=== PATIENT | female | born 1985 | race African-American/Black ===

== ENCOUNTER 2023-03-23 11:57 | Day surgery (SDC) | payer OTHER, SELFPAY ==
[2023-03-20 11:45] VITALS: BMI 29.7
[2023-03-23] MEDS: LACTATED RINGERS 1,000 ML 42 ML IV (12:52)
[2023-03-23 13:05] VITALS: BP 116/78; PULSE 87; RESP 16; TEMP 36.6; O2SAT 100; BMI 29.7
--- NOTE | 2023-03-23 13:42 | P.HP_ITS ---
History of Present Illness History of Present Illness Date Patient Seen: 03/23/23 Time Patient Seen: 13:42 Chief complaint: Tonsillectomy/Adenoidectomy Narrative: 38-year-old female last seen in clinic 12/20/2022 for chronic tonsillitis and tonsil stones as well as recurrent acute tonsillitis, presents for tonsillectomy and possible adenoidectomy. No interval health changes, wishes to proceed. [facility] Medical History Respiratory obstruction Recurrent acute tonsillitis Tonsil stone Headache Sleep disorder Depression Anxiety Surgical History No history of previous surgery Social History household members: spouse Smoking Status: Never smoker alcohol intake: current Meds Home Medications and Allergies Home Medications Medication Instructions Recorded Confirmed Type naproxen 500 mg tablet (Naprosyn) 500 mg PO PRN PRN prn 03/20/23 03/23/23 History sertraline 25 mg PO DAILY 03/20/23 03/23/23 History terbinafine HCl 250 mg tablet 250 mg PO DAILY 03/20/23 03/23/23 History trazodone 200 mg PO DAILY 03/20/23 03/23/23 History bupropion HCl 300 mg 24 hr tablet, 300 mg PO DAILY 03/23/23 03/23/23 History extended release Allergies Allergy/AdvReac Type Severity Reaction Status Date / Time No Known Drug Allergies Allergy Verified 03/23/23 12:52 Review of Systems Review of Systems Narrative: Negative except as listed in the HPI Exam Vital Signs (past 8 hours): - 03/23/23 13:05 Temperature 97.9 F Pulse Rate 87 Respiratory Rate 16 Blood Pressure 116/78 Pulse Oximetry 100 Oxygen Delivery Method Room Air Oxygen Delivery Method Room Air Narrative Exam Narrative: Well-developed well-nourished, heart regular rate and rhythm without murmur, lungs clear to auscultation bilaterally Assessment & Plan Assessment & Plan narrative: Assessment: Chronic tonsillitis, tonsil stones, recurrent acute tonsillitis, throat pain, upper airway obstruction Plan: Following discussion of the material risks benefits complications and alternatives, the patient elected to proceed.
--- NOTE | 2023-03-23 13:42 | PM.PREOP ---
Pre-operative Note Interval Note History & Physical reviewed/Exam performed by Physician: Yes Changes to H&P: No
--- NOTE | 2023-03-23 13:44 | PM.OP.1 ---
Operative Date/Time/Diagnoses Date of procedure: 03/23/23 Time of procedure: 14:19 Pre-op diagnosis: Chronic tonsillitis with tonsil stones, throat pain, recurrent acute tonsillitis, upper airway obstruction Post-op diagnosis: same Procedure & Clinicians Procedure: Tonsillectomy Same procedure as scheduled: Yes Indications: 38 Year old with the above diagnoses incompletely managed with medical therapy presents for the above procedure. Following discussion of the material risks benefits complications and alternatives, the parents elected to proceed. Surgeon: Eusebio South Anesthesia Type: General and Local Operative Notes Findings: Intact palate, single uvula, 2+ tonsils with stones, no significant adenoid tissue Estimated Blood Loss (mL): 5 Procedure in detail: Following identification and confirmation of consent the patient was brought to the operating room suite and placed in the supine position. General endotracheal anesthesia was administered. A head wrap, shoulder roll, and mouth gag were placed and a red rubber catheter was inserted through the nostril and out the mouth to retract the soft palate. There was no significant adenoid tissue. The left tonsil was retracted medially and suction electrocautery on a setting of 30 was used to dissect the tonsil in a subcapsular plane, followed by hemostasis with the same. This process was repeated on the right side with identical findings. The tonsillar fossae were superficially infiltrated bilaterally with 1% lidocaine 1 100,000 epinephrine. Mouth gag and rubber catheter were removed and the patient was extubated in the operating room and taken to the recovery room in stable condition without known complication. Complications: none Post-operative Condition: stable Disposition: same day surgery Plan for aftercare: Push fluids, alternate Tylenol and Advil every 3 hours for baseline pain control, oxycodone for breakthrough pain. Soft diet 2 full weeks, no heavy lifting or straining 2 weeks.
[2023-03-23] MEDS: ACETAMINOPHEN IV 1,000 MG/100 ML VIAL 400 MG IV (14:00)
[2023-03-23] MEDS: LIDOCAINE 1% W/EPI 20 ML INJ (14:05)
--- NOTE | 2023-03-23 14:07 | SUR.OPER ---
Supine on padded OR bed, head on pillow, arms padded and tucked at sides, legs uncrossed, safety belt at thigh, tape over blanket over lower legs .
[2023-03-23 14:25] VITALS: BP 122/84; BP 131/82; PULSE 92; PULSE 97; RESP 16; O2SAT 98
[2023-03-23 14:35] VITALS: BP 130/70; PULSE 88; RESP 16; O2SAT 98
[2023-03-23 14:36] VITALS: BP 118/78; PULSE 98; RESP 16; TEMP 36.8; O2SAT 98
[2023-03-23 14:42] VITALS: BP 131/82; PULSE 93; RESP 16; O2SAT 99
[2023-03-23] MEDS: OXYCODONE IR 5 MG TABLET PO (14:46)
[2023-03-23 14:50] VITALS: BP 124/66; PULSE 88; RESP 16; TEMP 36.8; O2SAT 98
== END 2023-03-23 15:15 | disposition home or self-care (01) ==
PROVIDERS: PCP Preventive Medicine Aerospace Medicine; Referring Provider Otolaryngology; Visit Provider Otolaryngology
PROC: (CPT 42826; principal; 2023-03-23 13:30)
DX: J35.01 Chronic tonsillitis (principal); J35.8 Other chronic diseases of tonsils and adenoids; J98.8 Other specified respiratory disorders
CPT/HCPCS: 42826; 81025; J0136; J1100; J2250; J2405; J3010

== ENCOUNTER → 2024-06-18 13:19 | Outpatient (CLI) | payer OTHER, SELFPAY ==
--- NOTE | 2024-06-18 13:21 | DI.MG.S_ITS ---
MM diagnostic mammo BI: 06/18/2024. BI-RADS: 1 CLINICAL: 39-year old female for bilateral diagnostic mammogram. Tyrer-Cuzick lifetime risk of 14.0%. No personal or first-degree family history of breast cancer. The patient reports pain (1 year) and nipple abnormality (1 year) in the left breast. PRIOR EXAMS No prior examinations available. MAMMOGRAPHY TECHNIQUE: 2D and 3D (tomosynthesis) digital mammographic views obtained, with additional images as needed for full coverage. Current study was also evaluated with a Computer Aided Detection (CAD) system. DENSITY C. The breasts are heterogeneously dense, which may obscure small masses. MAMMOGRAPHY FINDINGS Right: No suspicious mass, asymmetry, microcalcification, or other abnormality seen. Left: There is no underlying mammographic correlate to the tenderness and burning in the left breast. No suspicious mass, asymmetry, microcalcification, or other abnormality seen. IMPRESSION: * No evidence of malignancy. RECOMMENDATIONS Left * The cause of breast pain is not seen; the need to further evaluate should be based on clinical assessment. Bilateral * Annual screening mammography. COMMENTS: Findings and recommendations were conveyed to the patient during today's evaluation. OVERALL ASSESSMENT CATEGORY BI-RADS-1: Negative. The [employer] recommends annual screening mammography beginning at age 40 for women with average risk of breast cancer. ELECTRONICALLY SIGNED: [place] M.D. on 06/18/2024 at 03:14:46 PM PT Interpreting Station ID: [id number]
== END ==
PROVIDERS: PCP Student in an Organized Health Care Education/Training Program; Referring Provider Student in an Organized Health Care Education/Training Program; Visit Provider Student in an Organized Health Care Education/Training Program
DX: N64.4 Mastodynia (principal); R92.333 Mammographic heterogeneous density, bilateral breasts
CPT/HCPCS: 77066; G0279